=== PATIENT | female | born 1960 | race Caucasian/White ===

== ENCOUNTER 2018-10-23 16:07 | Emergency (ER) | payer MEDICAID, OTHER ==
[~2018-10-23] VITALS: Ht 157.5 cm; Wt 64.1 kg
[2018-10-23 16:11] VITALS: Ht 157.5 cm; Wt 64.1 kg
--- NOTE | 2018-10-23 17:02 | ERD ---
ER Documentation Chief Complaint Chief Complaint HEADACHE , LT SIDE FACE , LT ARM AND LT LEG NUMBNESS , ONSET 1130 AM HPI This is a 58-year-old female with a past medical history of an ablation 3 years prior to arrival. The patient states that she has not been to the physician since that time and does not take any medications other than vitamins. The patient indicates she was [facility] [employer] today standing for prolonged amount of time when she developed a sudden onset of lightheaded and dizziness. She developed a bandlike headache. She did notice some numbness and tingling to the left side of her face and left upper extremity. This lasted for several minutes and then went away. This occurred 6 hours prior to arrival. The patient also stated she started to notice some palpitations. She had no chest pain or pressure. She had no shortness of breath at rest or exertion. The patient states she was concerned she had not been to a physician in several days and therefore came to the emergency department to be further evaluated ROS All systems reviewed and are negative except as per history of present illness. Medications Home Meds No Active Prescriptions or Reported Meds Allergies Allergies: Coded Allergies: No Known Allergy (Unverified , 10/23/18) PMhx/Soc Medical and Surgical Hx: pt denies Medical Hx History of Surgery: Yes (cardiac ablation) Anesthesia Reaction: No Hx Neurological Disorder: No Hx Respiratory Disorders: No Hx Cardiac Disorders: No Hx Psychiatric Problems: No Hx Miscellaneous Medical Probl: No Hx Alcohol Use: No Hx Substance Use: No Hx Tobacco Use: No Smoking Status: Never smoker Physical Exam Vitals Vital Signs Date Temp Pulse Resp B/P (MAP) Pulse Ox O2 O2 Flow FiO2 Time Delivery Rate 10/23/18 67 20 115/65 100 Room Air 21:30 (82) 10/23/18 58 19 118/68 99 Room Air 20:30 (85) 10/23/18 98.0 56 18 123/62 100 Room Air 18:10 (82) 10/23/18 54 12 111/56 100 Room Air 17:46 (74) 10/23/18 58 15 122/73 98 Room Air 16:28 (89) 10/23/18 98.3 59 18 130/67 99 16:11 (88) Physical Exam Constitutional:Well-developed. Well-nourished. HEENT:Normocephalic. Atraumatic.Pupils were equal round reactive to light. Moist mucous membranes.No tonsillar exudates. Neck: No nuchal rigidity. No lymphadenopathy. No posterior cervical spine tenderness or step-offs. Respiratory: Not using accessory muscles of respiration.Lungs were clear to auscultation bilaterally. No rhonchi. No rales. No wheezing. Cardiovascular: Regular rate regular rhythm.No murmurs. No rubs were appreciated.S1, S2 normal. Distal pulses are palpable 2+ bilaterally. GI: Abdomen was soft. Nontender. Non Distended. No pulsatile abdominal masses or bruits. No rebound. No guarding. Bowel sounds were present and normal. Muscle skeletal: Full range of motion of both the upper and lower extremities bilaterally.Normal muscle tone.No assymetrical calf tenderness or swelling. Skin: No petechia, no purpura. No lesions on the palms or the soles of the feet. No maculopapular rash. NEURO: Patient was alert, awake, orientated x3.No facial droop. Gait observed and normal with no ataxia.Speech had regular rate and rhythm. No focal neurological deficits. Result Diagram: 10/23/18 1723 10/23/18 1723 Results 24 hrs Laboratory Tests Test 10/23/18 17:23 White Blood Count 7.2 10^3/ul Red Blood Count 4.24 10^6/ul Hemoglobin 13.3 g/dl Hematocrit 39.4 % Mean Corpuscular Volume 92.9 fl Mean Corpuscular Hemoglobin 31.4 pg Mean Corpuscular Hemoglobin Concent 33.8 g/dl Red Cell Distribution Width 13.1 % Platelet Count 257 10^3/UL Mean Platelet Volume 11.2 fl Immature Granulocytes % 0.300 % Neutrophils % 65.5 % Lymphocytes % 26.5 % Monocytes % 5.4 % Eosinophils % 1.2 % Basophils % 1.1 % Nucleated Red Blood Cells % 0.0 /100WBC Immature Granulocytes # 0.020 10^3/ul Neutrophils # 4.7 10^3/ul Lymphocytes # 1.9 10^3/ul Monocytes # 0.4 10^3/ul Eosinophils # 0.1 10^3/ul Basophils # 0.1 10^3/ul Nucleated Red Blood Cells # 0.0 10^3/ul Prothrombin Time 12.6 Sec Prothrombin Time Ratio 1.0 INR International Normalized Ratio 0.93 Activated Partial Thromboplast Time 26.7 Sec Sodium Level 140 mmol/L Potassium Level 3.9 mmol/L Chloride Level 109 mmol/L Carbon Dioxide Level 23 mmol/L Anion Gap 8 Blood Urea Nitrogen 19 mg/dl Creatinine 0.57 mg/dl Est Glomerular Filtrat Rate mL/min > 60 mL/min Glucose Level 122 mg/dl Calcium Level 8.7 mg/dl Total Bilirubin 0.3 mg/dl Direct Bilirubin 0.00 mg/dl Indirect Bilirubin 0.3 mg/dl Aspartate Amino Transf (AST/SGOT) 28 IU/L Alanine Aminotransferase (ALT/SGPT) 21 IU/L Alkaline Phosphatase 102 IU/L Creatine Kinase 124 IU/L Creatine Kinase Index 1.2 Creatinine Kinase MB (Mass) 1.47 ng/ml Troponin I < 0.012 ng/ml B-Type Natriuretic Peptide 122 PG/ML Total Protein 7.0 g/dl Albumin 3.8 g/dl Globulin 3.20 g/dl Albumin/Globulin Ratio 1.18 Current Medications Medications Dose Sig/Dorinda Start Time Status Last (Trade) Ordered Route PRN Stop Time Admin Dose Reason Admin Sodium 500 ml @ Q1H STAT 10/23/18 DC 10/23/18 Chloride 500 mls/hr IV 17:17 10/23/18 17:27 18:16 Aspirin 325 mg ONCE STAT 10/23/18 DC 10/23/18 (Aspirin) PO 17:17 10/23/18 17:27 17:21 Procedures/MDM This is a 58-year-old female presented to the emergency department with palpitations and intermittent numbness and tingling to the face and upper extremity. Patient was placed on chronic monitor continuous pulse oximetry and IV access was established by nursing staff . 12 Lead EKG tracing ordered and reviewed by myself showed: Normal sinus rhythm of 84 bpm and no arrhythmia. SC interval normal. QRS duration normal. No ST segment elevation No ST segment depression. No changes consistent with acute ischemia. Continue would be transferring off there is no infiltrates no pneumothorax or pleural effusions. The patient had no left leg abnormalities. There is no physical exam findings to suggest atypical myocardial ischemia as a result of her palpitations. There is no infectious process. My clinical suspicion was low for pulmonary embolism. I did a CT scan the patient said there is no intracerebral hemorrhage mass- effect or midline shift. The patient sensation was intact. There is no focal neurological deficits to suggest a cerebrovascular accident. I did indicate that this could be result of paresthesias and felt that the patient be safely discharged home. Observation Note: Time: 4 hours Family Hx: No Hypertension Evaluation: Multiple exams showed improving symptoms and no evidence of CVA or myocardial ischemia. Departure Diagnosis: Primary Impression: Paresthesias Additional Impression: Palpitations Condition: MICHAEL Mcdermott MD Oct 23, 2018 17:02
[2018-10-23] MEDS ORDERED: ASPIRIN 325 MG TAB PO STA (17:17)
[2018-10-23] MEDS ORDERED: SOD CHLORIDE 0.9% 500 ML IV STA (17:17)
[2018-10-23 21:30] VITALS: BP 115/65; PULSE 67; RESP 20
== END 2018-10-23 21:30 | disposition home or self-care (01) ==
LOC: E/R 16:07
DX: R20.2 Paresthesia of skin (principal); R00.2 Palpitations; R07.9 Chest pain, unspecified
CPT/HCPCS: 70450; 71045; 80053; 82550; 82553; 83880; 84484; 85025; 85610; 85730; 93005; J7040; Z7502; Z7610